=== PATIENT | female | born 2000 | race Caucasian/White ===

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

== ENCOUNTER 2018-12-30 05:53 | Inpatient (IN) ==
[2018-12-30] MEDS ORDERED: ONDANSETRON 4 MG/2 ML VIAL IV PRN (06:00)
[2018-12-30] MEDS ORDERED: MEPERIDINE 50 MG/1 ML VIAL IV PRN (06:00)
[2018-12-30] MEDS ORDERED: BUTORPHANOL 2 MG/ML VIAL IV PRN (06:00)
[2018-12-30] MEDS ORDERED: OXYTOCIN/LR 20 UNIT/1,000 ML BAG IV SCH (06:00)
[2018-12-30] MEDS: LACTATED RINGERS 1,000 ML IV SCH ×2 (06:21→09:41)
[2018-12-30 06:23] LABS: Basophils % 0.2 % (0.0-0.8); Eosinophils # 0.1 10*3/uL (0.0-0.87); Eosinophils % 1.1 % (0.00-10.9); Hematocrit 39.2 VOL% (35.7-47.0); Hemoglobin 13.1 GM/DL (12.0-16.0); Immature Granulocytes % 0.6 %; Immature Granulocytes Absolute 0.05 #; Lymphocytes # 1.7 10*3/uL (1.4-4.0); Mean Corpuscular HGB Conc 33.4 GM/DL (32-36); Mean Platelet Volume 10.2 FL (9.6-12.0); Monocytes % 6.2 % (1.7-12.7); Neutrophils % 71.9 % (38.7-73.9); Platelet Count 184 T/CUMM (130-400); Red Blood Count 4.31 MC/CUMM (3.8-5.5); Red Cell Distribution Width 14.7 % (9.3-17.3); White Blood Count 8.6 T/CUMM (4-12)
[2018-12-30 06:53] LABS: Albumin 2.8 G/DL (3.4-5.0); Bilirubin,Total 0.7 MG/DL (0.2-1.0); Calcium 8.7 MG/DL (8.5-10.1); Total Protein 6.9 G/DL (6.4-8.3)
[2018-12-30] MEDS ORDERED: diphenhydrAMINE 50 MG/1 ML VIAL IV PRN ×2 (07:33)
[2018-12-30] MEDS ORDERED: CITRIC ACID/SODIUM CITRATE 30 ML UDCUP PO ONE (07:33)
[2018-12-30] MEDS ORDERED: hydrOXYzine HCL 25 MG/1 ML VIAL IM PRN (07:33)
[2018-12-30] MEDS ORDERED: NALOXONE 0.4 MG/ML VIAL IV PRN (07:33)
[2018-12-30] MEDS ORDERED: ePHEDrine 50 MG/ML AMP IV PRN (07:33)
[2018-12-30] MEDS ORDERED: FAMOTIDINE 20 MG/2 ML VIAL IV ONE (07:33)
[2018-12-30] MEDS ORDERED: PROMETHAZINE 25 MG/1 ML VIAL IM ONE (07:33)
[2018-12-30] MEDS: fentaNYL 2 MCG/ROPIV 0.2% EPID 100 ML EPIDURAL SCH ×2 (08:34→15:45)
[2018-12-30] MEDS ORDERED: ePHEDrine 50 MG/ML AMP IV ONE (08:38)
[2018-12-30 09:22] LABS: Apearance,Urine CLEAR (Clear); Bacteria,Urine Occasional /HPF (Few); Bilirubin,Urine Negative (Negative); Blood, Urine Negative (Negative); Glucose,Urine (UA) Negative (Negative); Ketones,Urine Negative (Negative); Mucus,Urine Occasional /LPF (Occasional); Nitrite,Urine Negative (Negative); Protein,Urine Negative; RBC,Urine 1 /HPF (0-4); Squamous Epithelial Cell,Urine Occasional /HPF (0-10); Urine Color Yellow (Yellow); Urine Specific Gravity 1.016 (1.001-1.035); Urine Urobilinogen < 2.0 EU/DL (0.2-1.0); WBC,Urine <1 /HPF (0-6)
[2018-12-30] MEDS ORDERED: OXYTOCIN/LR 30 UNIT/1,000 ML BAG IV ONE (11:59)
[2018-12-30] MEDS ORDERED: miSOPROStoL 200 MCG TABLET ONE (16:14)
[2018-12-30] MEDS ORDERED: METHYLERGONOVINE 0.2 MG/1 ML AMP ONE (16:15)
[2018-12-30] MEDS ORDERED: LIDOCAINE 1% 50 ML VIAL ONE (16:15)
[2018-12-30] MEDS ORDERED: CARBOPROST TROMETHAMINE 250 MCG/ML AMP IM ONE (16:15)
[2018-12-30] MEDS ORDERED: MEASLES/MUMPS/RUBELLA VACCINE 0.5 ML VIAL SUBCUT ONE (20:25)
[2018-12-30] MEDS ORDERED: WITCH HAZEL PADS 100/JAR TOP PRN (20:25)
[2018-12-30] MEDS ORDERED: LANOLIN 50% CREAM 0.3 OZ TUBE TOP PRN (20:25)
[2018-12-30] MEDS ORDERED: BENZOCAINE 20%/MENTHOL 0.5% SPRAY 56 GM CAN TOP PRN (20:25)
[2018-12-30] MEDS ORDERED: ACETAMINOPHEN 325 MG TABLET PO PRN (20:25)
[2018-12-30] MEDS ORDERED: HYDROCORTISONE 2.5% RECTAL CREAM 30 GM TUBE TOP PRN (20:25)
[2018-12-30] MEDS ORDERED: DIPH/TET/ACEL PERT BOOSTER VACCINE 0.5 ML VIAL IM ONE (20:25)
[2018-12-30] MEDS ORDERED: RHO(D) IMMUNE GLOBULIN 300 MCG SYRINGE IM ONE (20:25)
[2018-12-30] MEDS ORDERED: BISACODYL 10 MG SUPP RECTAL PRN (20:25)
[2018-12-30] MEDS: DOCUSATE SODIUM 100 MG CAPSULE PO SCH (20:34)
[2018-12-30] MEDS: IBUPROFEN 800 MG TABLET PO PRN (20:34)
[2018-12-31 05:52] LABS: Basophils % 0.2 % (0.0-0.8); Eosinophils # 0.1 10*3/uL (0.0-0.87); Eosinophils % 0.7 % (0.00-10.9); Hematocrit 36.8 VOL% (35.7-47.0); Hemoglobin 12.2 GM/DL (12.0-16.0); Immature Granulocytes % 0.7 %; Immature Granulocytes Absolute 0.09 #; Lymphocytes # 1.8 10*3/uL (1.4-4.0); Lymphocytes % 13.7 % (21.3-54.2); Mean Corpuscular HGB Conc 33.2 GM/DL (32-36); Mean Corpuscular Volume 92.2 FL (87-102); Mean Platelet Volume 10.7 FL (9.6-12.0); Monocytes % 6.4 % (1.7-12.7); Neutrophils % 78.3 % (38.7-73.9); Platelet Count 144 T/CUMM (130-400); Red Blood Count 3.99 MC/CUMM (3.8-5.5); Red Cell Distribution Width 14.6 % (9.3-17.3); White Blood Count 12.9 T/CUMM (4-12)
[2018-12-31] MEDS: IBUPROFEN 800 MG TABLET PO PRN ×2 (08:04→14:09)
[2018-12-31] MEDS: oxyCODONE/ACETAMINOPHEN 5-325 MG TABLET PO PRN ×3 (08:07→19:39)
[2018-12-31] MEDS: DOCUSATE SODIUM 100 MG CAPSULE PO SCH ×2 (08:11→21:39)
[2019-01-01] MEDS: IBUPROFEN 800 MG TABLET PO PRN ×2 (03:49→11:05)
[2019-01-01] MEDS: oxyCODONE/ACETAMINOPHEN 5-325 MG TABLET PO PRN ×2 (03:51→11:05)
[2019-01-01] MEDS: DOCUSATE SODIUM 100 MG CAPSULE PO SCH (08:57)
[2019-01-01 11:58] VITALS: BP 108/46
== END 2019-01-01 16:00 | disposition home or self-care (01) | DRG 560 ==
LOC: N.LDOUT 05:53 → N.LD 05:54 → N.OB 20:00 → UNDODISIN 01-01 15:30
PROVIDERS: ADMIT Obstetrics & Gynecology; ATTEND Obstetrics & Gynecology

== ENCOUNTER 2021-11-19 03:02 | Inpatient (IN) ==
[2021-11-19] MEDS ORDERED: MEPERIDINE 50 MG/1 ML VIAL IV PRN (03:53)
[2021-11-19] MEDS ORDERED: TRANEXAMIC ACID 1,000 MG in SODIUM CHLORIDE 0.9% 100 ML IV PRN (03:53)
[2021-11-19] MEDS ORDERED: BUTORPHANOL 2 MG/ML VIAL IV PRN (03:53)
[2021-11-19] MEDS ORDERED: ONDANSETRON 4 MG/2 ML VIAL IV PRN (03:53)
[2021-11-19] MEDS ORDERED: CARBOPROST TROMETHAMINE 250 MCG/ML AMP IM PRN (03:53)
[2021-11-19] MEDS ORDERED: OXYTOCIN/LR 20 UNIT/1,000 ML BAG IV ONE ×3 (03:53→16:35)
[2021-11-19] MEDS ORDERED: LACTATED RINGERS 500 ML IV PRN (03:53)
[2021-11-19] MEDS ORDERED: LACTATED RINGERS 250 ML IV ONE (03:53)
[2021-11-19] MEDS ORDERED: METHYLERGONOVINE 0.2 MG/1 ML AMP IM PRN (03:53)
[2021-11-19] MEDS ORDERED: miSOPROStoL 200 MCG TABLET RECTAL PRN (03:53)
[2021-11-19] MEDS ORDERED: LACTATED RINGERS 1,000 ML IV SCH (04:00)
[2021-11-19 04:16] LABS: Basophils % 0.2 % (0.0-0.8); Eosinophils # 0.1 10*3/uL (0.0-0.87); Eosinophils % 0.7 % (0.00-10.9); Hematocrit 37.5 VOL% (35.7-47.0); Hemoglobin 12.9 GM/DL (12.0-16.0); Immature Granulocytes % 0.7 %; Immature Granulocytes Absolute 0.06 #; Lymphocytes # 1.6 10*3/uL (1.4-4.0); Lymphocytes % 17.8 % (21.3-54.2); Mean Corpuscular HGB Conc 34.4 GM/DL (32-36); Mean Corpuscular Volume 91.5 FL (87-102); Mean Platelet Volume 11.2 FL (9.6-12.0); Monocytes # 0.5 10*3/uL (0.11-0.8); Monocytes % 5.2 % (1.7-12.7); Neutrophils % 75.4 % (38.7-73.9); Platelet Count 207 T/CUMM (130-400); Red Cell Distribution Width 14.9 % (9.3-17.3); White Blood Count 9.2 T/CUMM (4-12)
[2021-11-19] MEDS ORDERED: OXYTOCIN/LR 20 UNIT/1,000 ML BAG IV SCH (06:15)
[2021-11-19] MEDS ORDERED: ePHEDrine 50 MG/ML VIAL IV PRN (08:47)
[2021-11-19] MEDS ORDERED: PROMETHAZINE 25 MG/1 ML VIAL IM ONE (08:47)
[2021-11-19] MEDS ORDERED: CITRIC ACID/SODIUM CITRATE 30 ML UDCUP PO ONE (08:47)
[2021-11-19] MEDS ORDERED: LACTATED RINGERS 1,000 ML IV ONE (08:47)
[2021-11-19] MEDS ORDERED: NALOXONE 0.4 MG/ML VIAL IV PRN (08:47)
[2021-11-19] MEDS ORDERED: hydrOXYzine HCL 25 MG/1 ML VIAL IM PRN (08:47)
[2021-11-19] MEDS ORDERED: diphenhydrAMINE 50 MG/1 ML VIAL IV PRN ×2 (08:47)
[2021-11-19] MEDS ORDERED: FAMOTIDINE 20 MG/2 ML VIAL IV ONE (08:47)
[2021-11-19] MEDS ORDERED: fentaNYL 2 MCG/ROPIV 0.2% EPID 100 ML EPIDURAL SCH (09:00)
[2021-11-19 10:36] LABS: Bilirubin,Urine Negative (Negative); Blood, Urine Negative (Negative); Glucose,Urine (UA) Negative (Negative); Ketones,Urine Negative (Negative); Mucus,Urine Occasional /LPF (Occasional); Nitrite,Urine Negative (Negative); Protein,Urine Negative (Negative); RBC,Urine 1 /HPF (0-4); Squamous Epithelial Cell,Urine Occasional /HPF (0-10); Urine Appearance Clear (Clear); Urine Color Yellow (Yellow); Urine Urobilinogen 0.2 eU/dL (<2.0); Urine pH 8.5 (4.5-8.0)
[2021-11-19] MEDS ORDERED: SODIUM CHLORIDE 0.9% 0 ML IV ONE (11:28)
[2021-11-19] MEDS ORDERED: miSOPROStoL 200 MCG TABLET ONE (11:28)
[2021-11-19] MEDS ORDERED: TRANEXAMIC ACID 1,000 MG/10 ML VIAL ONE (11:28)
[2021-11-19] MEDS ORDERED: CARBOPROST TROMETHAMINE 250 MCG/ML AMP IM ONE (11:29)
[2021-11-19] MEDS ORDERED: METHYLERGONOVINE 0.2 MG/1 ML AMP ONE (11:29)
[2021-11-19 12:32] LABS: Cord Arterial Blood HCO3 22.2 MMOL/L
[2021-11-19 12:35] LABS: Cord Venous Blood HCO3 23.1 MMOL/L; Cord Venous Blood PCO2 45.5 MMHG; Cord Venous Blood PO2 27.8
[2021-11-19] MEDS ORDERED: WITCH HAZEL PADS 100/JAR TOP PRN (16:35)
[2021-11-19] MEDS ORDERED: BENZOCAINE 20%/MENTHOL 0.5% SPRAY 56 GM CAN TOP PRN (16:35)
[2021-11-19] MEDS ORDERED: MEASLES/MUMPS/RUBELLA VACCINE 0.5 ML VIAL SUBCUT ONE (16:35)
[2021-11-19] MEDS ORDERED: oxyCODONE/ACETAMINOPHEN 5-325 MG TABLET PO PRN (16:35)
[2021-11-19] MEDS ORDERED: BISACODYL 10 MG SUPP RECTAL PRN (16:35)
[2021-11-19] MEDS ORDERED: LANOLIN 50% CREAM 0.3 OZ TUBE TOP PRN (16:35)
[2021-11-19] MEDS ORDERED: HYDROCORTISONE 2.5% RECTAL CREAM 30 GM TUBE TOP PRN (16:35)
[2021-11-19] MEDS ORDERED: DIPH/TET/ACEL PERT BOOSTER VACCINE 0.5 ML VIAL IM ONE (16:35)
[2021-11-19] MEDS ORDERED: ACETAMINOPHEN 325 MG TABLET PO PRN (16:35)
[2021-11-19] MEDS ORDERED: RHO(D) IMMUNE GLOBULIN 300 MCG SYRINGE IM ONE (16:35)
[2021-11-19] MEDS: oxyCODONE/ACETAMINOPHEN 5-325 MG TABLET PO PRN ×2 (16:47→22:20)
[2021-11-19] MEDS ORDERED: NEOMYCIN/POLYMYXIN/BACITRACIN OINT 0.9 GM PACK TOP SCH (19:10)
[2021-11-19] MEDS: DOCUSATE SODIUM 100 MG CAPSULE PO SCH (22:21)
[2021-11-19] MEDS: IBUPROFEN 800 MG TABLET PO PRN (22:21)
[2021-11-20 05:12] LABS: Basophils % 0.3 % (0.0-0.8); Eosinophils # 0.1 10*3/uL (0.0-0.87); Eosinophils % 1.6 % (0.00-10.9); Hemoglobin 11.5 GM/DL (12.0-16.0); Immature Granulocytes % 0.4 %; Immature Granulocytes Absolute 0.04 #; Lymphocytes # 1.9 10*3/uL (1.4-4.0); Lymphocytes % 21.2 % (21.3-54.2); Mean Corpuscular HGB Conc 32.9 GM/DL (32-36); Mean Corpuscular Volume 94.9 FL (87-102); Mean Platelet Volume 11.3 FL (9.6-12.0); Monocytes # 0.5 10*3/uL (0.11-0.8); Monocytes % 5.9 % (1.7-12.7); Neutrophils % 70.6 % (38.7-73.9); Platelet Count 158 T/CUMM (130-400); Red Blood Count 3.69 MC/CUMM (3.8-5.5); Red Cell Distribution Width 14.8 % (9.3-17.3)
[2021-11-20] MEDS: IBUPROFEN 800 MG TABLET PO PRN (06:22)
[2021-11-20] MEDS: oxyCODONE/ACETAMINOPHEN 5-325 MG TABLET PO PRN ×2 (06:23→14:41)
[2021-11-20] MEDS: NEOMYCIN/POLYMYXIN/BACITRACIN OINT 0.9 GM PACK TOP SCH ×2 (06:54→09:51)
[2021-11-20] MEDS: MULTIVITAMIN (PRENATAL) TABLET PO SCH (09:50)
[2021-11-20] MEDS: DOCUSATE SODIUM 100 MG CAPSULE PO SCH ×2 (09:50→21:19)
[2021-11-20] MEDS ORDERED: SIMETHICONE CHEW 125 MG TABLET PO PRN (15:26)
[2021-11-20] MEDS ORDERED: SIMETHICONE CHEW 80 MG TABLET PO PRN (15:48)
[2021-11-21] MEDS: oxyCODONE/ACETAMINOPHEN 5-325 MG TABLET PO PRN (03:17)
[2021-11-21] MEDS: IBUPROFEN 800 MG TABLET PO PRN (03:18)
[2021-11-21 08:30] VITALS: BP 131/76
[2021-11-21] MEDS: DOCUSATE SODIUM 100 MG CAPSULE PO SCH (08:52)
[2021-11-21] MEDS: MULTIVITAMIN (PRENATAL) TABLET PO SCH (08:52)
[2021-11-21] MEDS ORDERED: SERTRALINE 50 MG TABLET PO SCH (10:00)
[2021-11-21] MEDS: NEOMYCIN/POLYMYXIN/BACITRACIN OINT 0.9 GM PACK TOP SCH (12:53)
== END 2021-11-21 13:56 | disposition home or self-care (01) | DRG 560 ==
LOC: N.LD 03:02 → N.OB 15:30
PROVIDERS: ADMIT Obstetrics & Gynecology; ATTEND Obstetrics & Gynecology